=== PATIENT | female | born 1990 | race Caucasian/White ===

== ENCOUNTER 2024-12-29 05:55 | Emergency (ER) | payer MEDICAID, SELFPAY ==
[2024-12-29 05:56] VITALS: BMI 21.4
[2024-12-29 05:59] VITALS: BP 106/79; PULSE 89; RESP 19; TEMP 36.6; O2SAT 99
--- NOTE | 2024-12-29 06:28 | XR_ITS ---
Examination: Lumbar spine 3 views Technique one AP lateral coned lateral lower lumbar spine 3 views Exam date and time: December 29, 2024 0726 hrs. Indications: Lower back pain beginning 2 days ago. Findings: Adequate alignment lumbar vertebral bodies No lumbar fracture No spondylolisthesis Mild disc narrowing L5-S1 Impression: Mild disc narrowing L5-S1
--- NOTE | 2024-12-29 06:28 | XR_ITS ---
Examination: AP right hip single view Technique: AP right hip single view Exam date and time: December 29, 2024 0726 hrs. Indications: Right hip pain beginning 2 days ago. Findings: No hip fracture or hip dislocation No significant neck joint narrowing Impression: No hip fracture or hip dislocation No significant hip joint narrowing
[2024-12-29] MEDS: IBUPROFEN TAB 600 MG TABLET PO (06:41)
[2024-12-29] MEDS: CYCLObenzaPRINE 5 MG TABLET PO (06:41)
[2024-12-29 07:53] LABS: Collection Type, Urine Clean Catch
--- NOTE | 2024-12-29 08:09 | EDNOTE_ITS ---
<Statement entered by Miriam Franco MD - 01/01/25 15:23> As co-signing physician, I was present and available for consult prn. I concur with the plan and care as documented by the midlevel provider. Lower Extremity Injury RME/HPI General Chief Complaint: Extremity Injury, Lower Stated Complaint: RT HIP PAIN Time Seen by Provider: 12/29/24 06:16 Source: patient Arrival date/time: 12/29/24 05:55 This is a 34-year-old female who presents to the emergency department complaints of right gluteal hip pain that radiates down to her right foot. Reports her pain was exacerbated after she went up a flight of stairs. Patient did not attempt any interventions or take any OTC medications prior to ED visit. Patient denies any other associated symptoms or aggravating factors. No modifying factors, no radiation, no migration. Mode of arrival: ambulatory Limitations: no limitations Related Data Previous Rx's ?Medication ?Instructions ?Recorded prednisone 10 mg tablet 10 mg PO BID #6 tabs 9 sulfamethoxazole 800 1 tab PO BID #10 tabs mg-trimethoprim 160 mg tablet (Bactrim DS) methocarbamol 500 mg tablet 500 mg PO Q8H #20 tabs naproxen 500 mg tablet (Naprosyn) 500 mg PO BID PRN pa in #20 tabs 03/16/24 cyclobenzaprine 10 mg tablet 10 mg PO TID PRN muscle s pasm #14 06/21/24 tabs ibuprofen 600 mg tablet 600 mg PO Q8H PRN fever or p ain 06/21/24 #20 tabs cyclobenzaprine 5 mg tablet 5 mg PO Q8H #14 tabs 12/29 ibuprofen 600 mg tablet 600 mg PO Q8H PRN fever or p ain 12/29/24 #30 tabs Allergies Allergy/AdvReac Type Severity Reaction Status Date / Time clarithromycin Allergy Severe Swelling Verified 06/21/24 07:57 of Lip/Tongue/Throat Penicillins Allergy Severe DIFFICULTY Verified 06/21/24 07:57 BREATHING, HIVES Review of Systems Review of Systems Systems Reviewed: All systems reviewed, normal except as documented Narrative Review of Systems: Gen: No fever, no chills, no weight loss EYES: No discharge, no visual changes, no pain HEENT: No ear pain, no congestion, no sore throat PULM: No shortness of breath, no cough, no congestion CV: No chest pain, no dyspnea on exertion, no palpitations GI: No nausea, no vomiting, no diarrhea, no pain, no constipation : No frequency, no urgency, no dysuria Musc/skel: No joint pain, no back pain Skin: No rash Psyc: No hallucinations, no depression Heme/Lymph: No easy bleeding or bruising tendencies Neuro: No weakness, no headache ED Exam General Limitations: Present no limitations General appearance: Present alert and in no apparent distress Head Head exam: Present atraumatic Eye Eye exam: Present normal appearance, PERRL and EOMI ENT ENT exam: Present normal exam, normal oropharynx and mucous membranes moist Neck Neck exam: Present normal inspection, full ROM and trachea midline Chest Chest inspection: Present normal inspection and symmetric chest wall rise Respiratory Respiratory exam: Present normal lung sounds bilaterally Cardiovascular Cardiovascular exam: Present regular rate, normal rhythm and normal heart sounds Abdominal Exam Abdominal exam: Present soft and normal bowel sounds Extremities Exam Extremities exam: Present normal inspection and full ROM Back Exam Back exam: Present normal inspection, full ROM, sciatic notch tenderness (R) and straight leg raise (R); Absent CVA tenderness (R) or CVA tenderness (L) Neurological Exam Neurological exam: Present alert, oriented X3 and CN II-XII intact Psychiatric Psychiatric exam: Present normal affect and normal mood Skin Skin exam: Present warm, dry, intact and normal color Course Quality Measures none Orders Category Date Time Status XR hip RT 1V Stat Exams 12/29/24 06:28 Completed XR lumbar spine 2-3V Stat Exams 12/29/24 06:28 Completed HCG Qualitative,Urine Stat Lab 12/29/24 06:44 Completed Urinalysis Stat Lab 12/29/24 06:44 Completed CYCLObenzaPRINE [Flexeril] Med 12/29/24 06:30 Discontinued 5 mg PO X1 ONE Ibuprofen Tab [Motrin Tab] Med 12/29/24 06:30 Discontinued 600 mg PO X1 ONE Vital Signs Vital signs: Vital Signs Temperature 98 F 12/29/24 05:59 Pulse Rate 89 12/29/24 05:59 Respiratory Rate 19 12/29/24 05:59 Blood Pressure 106/79 12/29/24 05:59 Pulse Oximetry (%) 99 12/29/24 05:59 Oxygen Delivery Method Room Air 12/29/24 05:59 Extremity Injury, Lower MDM Narrative MDM Narrative:: No fever, weakness, abdominal pain, saddle anesthesia, bowel/bladder incontinence noted. No hx of IVDA. Gait and sensation intact. No signs of emergent pathology at this time. Low suspicion for emergent etiology such as epidural abscess or spinal cord compression/cauda equina. Exam is consistent with musculoskeletal back pain. Gave meds while in ED. Pain went from 10 to 5 after meds. Vitals improved as well. Likely chronic back pain versus sciatica. Patient data External records reviewed:: [facility] previous records Clinical information provided by:: patient Social determinants that could affect healthcare access:: none Patient has the following chronic illnesses:: None How is presenting disease/condition affected by chronic disease/condition?: no c hronic disease Evaluation data The following diagnostics were reviewed and interpreted by me:: radiology exam(s) Lab and/or radiology exams considered but not ordered:: MRI can be done outpatient Interpretation Summary: cc: Abraham Jefferson MD; Natalia uBtler PA-C; Daniel ([facility])Sandy LUMBER HACKER~ Examination: Lumbar spine 3 views Technique one AP lateral coned lateral lower lumbar spine 3 views Exam date and time: December 29, 2024 0726 hrs. Indications: Lower back pain beginning 2 days ago. Findings: Adequate alignment lumbar vertebral bodies No lumbar fracture No spondylolisthesis Mild disc narrowing L5-S1 Impression: Mild disc narrowing L5-S1 Examination: AP right hip single view Technique: AP right hip single view Exam date and time: December 29, 2024 0726 hrs. Indications: Right hip pain beginning 2 days ago. Findings: No hip fracture or hip dislocation No significant neck joint narrowing Impression: No hip fracture or hip dislocation No significant hip joint narrowing Medications / Prescriptions Medications or Prescriptions considered but not ordered:: no Medication administrations:: Medication Administration History Discontinued Medications Cyclobenzaprine HCl (Cyclobenzaprine 5 Mg Tablet) 5 mg PO X1 ONE Stop: 12/29/24 06:31 Last Admin: 12/29/24 06:41 Dose: 5 mg Documented By: ABHINAV Ibuprofen (Ibuprofen Tab 600 Mg Tablet) 600 mg PO X1 ONE Stop: 12/29/24 06:31 Last Admin: 12/29/24 06:41 Dose: 600 mg Documented By: CB All medications administered and effective Consultations Consultation(s) initiated? (list below): No Diagnosis Extremity Injury, Lower Differential Diagnosis: ankle sprain and strain, fracture of hip, puncture wound of foot and fracture of toe Most likely diagnosis given after review of the tests above:: Degenerative disc disease Admission Indicated Admission indicated?: not indicated Admission Request Was there a request for admission?: No Disposition Plan Disposition Plan: Discharge Discharge Attestation Discharge Attestation: The patient and all family members were given an opportunity to ask questions and understood the discharge instructions. Discharge instructions specifically effects, indications for sooner follow up or return to the emergency department, and the expected course of current diagnosis. Patient condition: Stable Discharge Plan Plan Patient Disposition: HOME (Self Care) Prescriptions/Referrals Prescriptions/Med Rec: New ibuprofen 600 mg tablet 600 mg PO Q8H PRN (Reason: fever or pain) Qty: 30 0RF cyclobenzaprine 5 mg tablet 5 mg PO Q8H Qty: 14 0RF No Action sulfamethoxazole-trimethoprim [Bactrim DS] 800-160 mg tablet 1 tab PO BID Qty: 10 0RF prednisone 10 mg tablet 10 mg PO BID Qty: 6 0RF methocarbamol 500 mg tablet 500 mg PO Q8H Qty: 20 0RF naproxen [Naprosyn] 500 mg tablet 500 mg PO BID PRN (Reason: pain) Qty: 20 0RF ibuprofen 600 mg tablet 600 mg PO Q8H PRN (Reason: fever or pain) Qty: 20 0RF cyclobenzaprine 10 mg tablet 10 mg PO TID PRN (Reason: muscle spasm) Qty: 14 0RF Referrals: Natalia Butler PA-C [Primary Care Provider] - In 1 week Problem List Clinical Impression: Degeneration of lumbar intervertebral disc Patient/Caregiver Discharge Instructions Discharge Activity: activity as tolerated Education Materials: ED Degenerative Disk Disease, ED Sciatica Additional Instructions: Advised patient of nonpharmacologic treatment with superficial heat, massage, acupuncture, or spinal manipulation If pharmacologic treatment is desired, good choice is nonsteroidal anti- inflammatory drugs (NSAIDs) or skeletal muscle relaxants. Advised patient that Physical therapy is often incorporated as a component of conservative therapy Advised to start medications of: NSAID, muscle relaxer. Follow-up with your primary doctor in 2 to 3 days. Return to the emergency department this any worsening symptoms change in condition. Print Language: Iranian Stand Alone Forms: [employer] Patient Portal Info Letter PA/LUMBER HACKER Supervising Physician PA/LUMBER HACKER Supervising Physician: Dr. Franco
[2024-12-29 08:35] LABS: HCG Qualitative,Urine Negative
[2024-12-29 08:48] VITALS: BP 90/65; PULSE 79; RESP 16; TEMP 36.6; O2SAT 99
[2024-12-29 08:49] LABS: Bacteria,Urine Rare; Bilirubin,Urine Negative (Negative); Blood,Urine Negative (Negative); Calcium Oxalate Crystals,Urine 4+; Color,Urine Yellow (Lt Yel-Yel); Glucose, Urine Negative (Negative); Ketones,Urine Trace (Negative); Leukocyte Esterase,Urine Positive (Negative); Nitrite,Urine Negative (Negative); Protein,Urine 1+ (Neg - Trace); RBC,Urine 42 /hpf (0-3); Specific Gravity,Urine 1.042 (1.001-1.035); Squamous Epithelial Cell,Urine 31 /hpf (0-5); WBC,Urine 117 /hpf (0-5)
[2024-12-29 08:54] LABS: Clarity,Urine Cloudy (Clear/Hazy)
== END 2024-12-29 09:00 | disposition home or self-care (01) ==
PROVIDERS: Nurse Practitioner Primary Care; Emergency Provider Emergency Medicine; PCP Physician Assistant
DX: M51.369 Other intervertebral disc degeneration, lumbar region without mention of lumbar back pain or lower extremity pain (principal); M48.07 Spinal stenosis, lumbosacral region
CPT/HCPCS: 72100; 73501; 81001; 81025; 99283; A9270

== ENCOUNTER 2025-08-07 08:39 | Emergency (ER) | payer MEDICAID, SELFPAY ==
[2025-08-07 08:41] VITALS: BMI 21.7
[2025-08-07 08:51] VITALS: BP 110/79; PULSE 105; RESP 18; TEMP 36.7; O2SAT 98
--- NOTE | 2025-08-07 09:21 | PD.EDNECK ---
ED Neck Injury Pain RME/HPI General Chief Complaint: Neck Pain/Injury Stated Complaint: NECK PAIN WITH NUMBNESS TO HAND AN FEET Time Seen by Provider: 08/07/25 09:21 Arrival date/time: 08/07/25 08:39 RME / HPI RME / HPI Narrative: See [facility] for Dr. Gutierrez's HPI documentation. Related Data Previous Rx's ?Medication ?Instructions ?Recorded prednisone 10 mg tablet 10 mg PO BID #6 tabs 01/07/19 sulfamethoxazole 800 1 tab PO BID #10 tabs 01/07/19 mg-trimethoprim 160 mg tablet (Bactrim DS) methocarbamol 500 mg tablet 500 mg PO Q8H #20 tabs 03/16/24 naproxen 500 mg tablet (Naprosyn) 500 mg PO BID PRN pain #20 tabs 03/16/24 cyclobenzaprine 10 mg tablet 10 mg PO TID PRN muscle spasm #14 06/21/24 tabs ibuprofen 600 mg tablet 600 mg PO Q8H PRN fever or pain 06/21/24 #20 tabs cyclobenzaprine 5 mg tablet 5 mg PO Q8H #14 tabs 12/29/24 ibuprofen 600 mg tablet 600 mg PO Q8H PRN fever or pain 12/29/24 #30 tabs Allergies Allergy/AdvReac Type Severity Reaction Status Date / Time clarithromycin Allergy Severe Swelling Verified 08/07/25 08:45 of Lip/Tongue/Throat Penicillins Allergy Severe DIFFICULTY Verified 08/07/25 08:45 BREATHING, HIVES Review of Systems Review of Systems Systems Reviewed: All systems reviewed, normal except as documented Past Medical History Past Medical History NEUROLOGIC: Positive Migraine Social History SMOKING STATUS: Current every day smoker ED Exam Narrative Physical exam: See [facility] for Dr. Gutierrez's physical exam documentation. Course Quality Measures none Orders Category Date Time Status CT cervical spine wo con Stat Exams 08/07/25 09:[address] head/brain wo con Stat Exams 08/07/25 09:[address] lumbar spine wo con Stat Exams 08/07/25 09:[address] thoracic spine wo con Stat Exams 08/07/25 09:23 Completed BMP [Basic Metabolic Panel] Stat Lab 08/07/25 10:04 Completed CBC Stat Lab 08/07/25 10:04 Completed CRP [C-Reactive Protein] Stat Lab 08/07/25 10:04 Completed Drug Screen,Urine Stat Lab 08/07/25 11:21 Completed ESR [Sed Rate (ESR)] Stat Lab 08/07/25 10:04 Completed HCG,Qualitative Serum Stat Lab 08/07/25 10:04 Completed Magnesium Stat Lab 08/07/25 10:04 Completed Procalcitonin Stat Lab 08/07/25 10:04 Completed TSH [Thyroid Stimulating Hormone] Stat Lab 08/07/25 10:04 Completed UA, C/S IF [Urinalysis, C/S if Indicated] Stat Lab 08/07/25 11:21 Completed Uric Acid Stat Lab 08/07/25 10:04 Completed Vital Signs Vital signs: Vital Signs Temperature 98.0 F 08/07/25 08:51 Pulse Rate 105 H 08/07/25 08:51 Respiratory Rate 18 08/07/25 08:51 Blood Pressure 110/79 08/07/25 08:51 Pulse Oximetry (%) 98 08/07/25 08:51 Oxygen Delivery Method Room Air 08/07/25 08:51 Pulse ox is 98% on room air which is adequate. Neck Pain MDM Narrative MDM Narrative:: This section includes all my notes and documentations, including HPI, PE, and ED course. Leon Gutierrez MD HPI: 35-year-old female here with a couple month history of neck pain and back pain with numbness and tingling in both extremities. No recent injury. No other complaints. ROS: All negative except as documented in HPI. Physical Exam: General:? Alert and oriented.? No acute distress.? Eyes:? Conjunctivae and lids clear.? EOMI.? PERRL. ENT:? No signs of head trauma. Neck:? Supple.? No tenderness. Heart:? RRR. Lungs:? No respiratory distress.? Good air movement.? No rhonchi, wheezing, rales.? Chest:? No tenderness. Abdomen:? Soft and nontender.? Normal bowel sounds.? No distension.? No rebound or guarding.? Back:? No tenderness.? Skin:? Warm and dry.? Neuro:? Alert and oriented X 3.? Cranial Nerves II-XII grossly intact.? No peripheral motor deficits. Musculoskeletal:? All major joints and bones are not tender with no limited ROM. I reviewed all diagnostic test results: My review of the CT head report is: No acute findings My review of the CT cervical spine report is: No acute fracture My review of the CT lumbar spine report is: No acute fracture My review of the CT thoracic spine report is: No thoracic fracture Blood tests and urine tests are unremarkable At this point, diagnoses include: Neck pain Back pain Patient remained stable. Recommended outpatient care. Based on my best medical judgment, made decision no further evaluation or treatment indicated at this time. Patient understands and agrees to the discharge instructions customized and printed, see below. Discharge Instructions from Dr. Gutierrez printed for you: 1. After extensive evaluation, there is no life-threatening condition or emergency. Such as stroke or brain tumor or broken neck or broken back or complete compression of your spinal cord. 2. Continue current care with your private doctors this week. Ask for further investigation not available here in the ER. Such as MRI imaging studies and nerve conduction studies and referrals to see specialists, such as neurologist. 3. Seek immediate medical care with worsening or with any concerns. Leon Gutierrez MD Patient data External records reviewed:: [facility] previous records Clinical information provided by:: patient Social determinants that could affect healthcare access:: none Patient has the following chronic illnesses:: None reported How is presenting disease/condition affected by chronic disease/condition?: uneffected by Evaluation data The following diagnostics were reviewed and interpreted by me:: lab results and radiology exam(s) Lab and/or radiology exams considered but not ordered:: None Interpretation Summary: I reviewed all diagnostic test results: My review of the CT head report is: No acute findings My review of the CT cervical spine report is: No acute fracture My review of the CT lumbar spine report is: No acute fracture My review of the CT thoracic spine report is: No thoracic fracture Blood tests and urine tests are unremarkable Medications / Prescriptions Medications or Prescriptions considered but not ordered:: None Medication administrations:: No medications given during ED course. Consultations Consultation(s) initiated? (list below): No Diagnosis Neck Differential Diagnosis: disc disorder of cervical region, whiplash injury to neck, closed subluxation of cervical spine, fracture of cervical spine without lesion of spinal cord, cervical radiculopathy, torticollis, cervical spondylosis and strain of neck muscle Most likely diagnosis given after review of the tests above:: Musculoskeletal neck/back pain Admission Indicated Admission indicated?: not indicated Explain why admission is indicated or not indicated:: With no condition needing emergent intervention, there was no indication for admission. Admission Request Was there a request for admission?: No Disposition Plan Disposition Plan: Discharge Discharge Attestation Discharge Attestation: The patient and all family members were given an opportunity to ask questions and understood the discharge instructions. Discharge instructions specifically effects, indications for sooner follow up or return to the emergency department, and the expected course of current diagnosis. Patient condition: Stable Discharge Plan Plan Patient Disposition: HOME (Self Care) Prescriptions/Referrals Prescriptions/Med Rec: No Action sulfamethoxazole-trimethoprim [Bactrim DS] 800-160 mg tablet 1 tab PO BID Qty: 10 0RF prednisone 10 mg tablet 10 mg PO BID Qty: 6 0RF methocarbamol 500 mg tablet 500 mg PO Q8H Qty: 20 0RF naproxen [Naprosyn] 500 mg tablet 500 mg PO BID PRN (Reason: pain) Qty: 20 0RF ibuprofen 600 mg tablet 600 mg PO Q8H PRN (Reason: fever or pain) Qty: 30 0RF cyclobenzaprine 5 mg tablet 5 mg PO Q8H Qty: 14 0RF ibuprofen 600 mg tablet 600 mg PO Q8H PRN (Reason: fever or pain) Qty: 20 0RF cyclobenzaprine 10 mg tablet 10 mg PO TID PRN (Reason: muscle spasm) Qty: 14 0RF Referrals: Natalia Butler PA-C [Primary Care Provider, Family Practice] - In 1 week Problem List Clinical Impression: Neck pain, Back pain Patient/Caregiver Discharge Instructions Discharge Activity: activity as tolerated Education Materials: ED Back and Neck Pain, General Additional Instructions: Discharge Instructions from Dr. Gutierrez printed for you: 1. After extensive evaluation, there is no life-threatening condition or emergency. Such as stroke or brain tumor or broken neck or broken back or complete compression of your spinal cord. 2. Continue current care with your private doctors this week. Ask for further investigation not available here in the ER. Such as MRI imaging studies and nerve conduction studies and referrals to see specialists, such as neurologist. 3. Seek immediate medical care with worsening or with any concerns. Print Language: Cuban Stand Alone Forms: [employer] Patient Portal Info Letter
--- NOTE | 2025-08-07 09:23 | XR_ITS ---
Examination: CT brain head without contrast. 2-D sagittal coronal reconstructions Date and time of exam: August 07, 2025, 0933 hours, comparison March 16, 2024 INDICATIONS: Generalized head pain today CTDI: vol (mGy): 48.6 DLP: (mGycm): 912 Technique: Multiple CT axial sections of the brain have been obtained, 5 mm slice thickness. Contrast has not been administered. 2-D sagittal, coronal reconstructions have been obtained Low dose protocols were performed. One or more of the following dose reduction techniques were used; automated exposure control, adjustment of the mA and/or KV according to patient size, use of iterative reconstruction technique. Findings: No significant ventricular enlargement. Intra-axial or extra-axial hemorrhage density is not seen. No mass effect or midline shift Basal cisterns are not remarkable. Fourth ventricle is midline. Cranial vault intact. Impression: Negative for acute hemorrhage, mass effect or midline shift Advise clinical correlation and follow-up accordingly
--- NOTE | 2025-08-07 09:23 | XR_ITS ---
Examination: CT cervical spine without contrast 2-D sagittal reconstructions 2-D coronal reconstructions 3-D reconstructions. Exam date and time: August 07, 2025, 0933 hours INDICATIONS: Onset neck pain today CTDI:vol (mGy) 12.9 DLP: (mGycm) 289 Technique: Multiple 2 mm axial sections of the cervical spine have been obtained. The coronal and sagittal reconstructions have been obtained. 3-D reconstructions have been obtained. Low dose protocols were performed. One or more of the following dose reduction techniques were used; automated exposure control, adjustment of the mA and/or KV according to patient size, use of iterative reconstruction technique. Findings: Axial sections demonstrate intact base of the skull. C1 exhibit satisfactory relationship to the odontoid. No acute cervical vertebral body fracture seen. Alignment posterior spinous processes satisfactory. Impression: No acute cervical fracture. As clinically warranted, MRI cervical spine without contrast follow-up would be preferable in assessing for acquired soft tissue spinal stenosis
--- NOTE | 2025-08-07 09:23 | XR_ITS ---
Examination: CT lumbar spine, without contrast. 2-D sagittal reconstructions. 2-D coronal reconstructions. 3-D reconstructions. Date and time of exam: July 7202 5, 1109 hours INDICATIONS: Lower back pain onset today CTDI: vol (mGy): 12.6 DLP: (mGycm): 361 Technique: Multiple 1.25 mm axial sections of the lumbar spine without intravenous contrast have been obtained. 2-D sagittal and coronal reconstructions have been obtained. 3-D reconstructions have been obtained. Low dose protocols were performed. One or more of the following dose reduction techniques were used; automated exposure control, adjustment of the mA and/or KV according to patient size, use of iterative reconstruction technique. Findings: Adequate alignment lumbar vertebral bodies on the lateral view No lumbar fracture No spondylolisthesis Lumbar pedicles, laminae transverse and posterior spinous processes intact Axial images demonstrate no focal lumbar disc protrusion IMPRESSION: No lumbar fracture No lumbar disc narrowing No focal lumbar disc protrusions
--- NOTE | 2025-08-07 09:23 | XR_ITS ---
Examination: CT thoracic spine, without contrast. 2-D sagittal reconstructions. 2-D coronal reconstructions. 3-D reconstructions. Date and time of exam: August 07, 2025, 1109 hours INDICATIONS: Onset mid back pain today CTDI: vol (mGy): 20.4 DLP: (mGycm): 616 Technique: Multiple 1.25 mm axial sections of the thoracic spine without intravenous contrast have been obtained. 2-D sagittal and coronal reconstructions have been obtained. 3-D reconstructions have been obtained. Low dose protocols were performed. One or more of the following dose reduction techniques were used; automated exposure control, adjustment of the mA and/or KV according to patient size, use of iterative reconstruction technique. Findings: Adequate alignment thoracic vertebral bodies on lateral view No thoracic fracture No significant thoracic disc narrowing Thoracic pedicles, laminae, transverse and posterior spinous processes intact No focal thoracic disc protrusion IMPRESSION: No thoracic fracture No focal thoracic disc protrusion If pain persists, consider MRI thoracic spine without contrast follow-up
[2025-08-07 10:21] LABS: Basophils # (Auto) 0.1 Thou/mm3 (0.0-0.2); Basophils % (Auto) 1 % (0-2.5); Eosinophils # (Auto) 0.3 Thou/mm3 (0.0-0.5); Eosinophils % (Auto) 4 % (0-10); Hematocrit 36.8 % (36.0-46.0); Hemoglobin 12.4 g/dL (12.0-16.0); Immature Granulocytes Auto 0.01 Thou/mm3 (0.00-0.00); Lymphocytes # (Auto) 2.8 Thou/mm3 (1.0-4.8); Lymphocytes % (Auto) 34 % (10-50); Mean Corpuscular HGB Conc 33.7 g/dl (31.0-37.0); Mean Corpuscular Hemoglobin 32.6 pg (25.0-35.0); Mean Corpuscular Volume 97 fL (80-100); Monocytes # (Auto) 0.7 Thou/mm3 (0.0-0.8); Monocytes % (Auto) 8 % (0-12); Neutrophils # (Auto) 4.4 Thou/mm3 (1.8-7.7); Neutrophils % (Auto) 53 % (37-80); Nucleated Red Blood Cell # 0.00 Thou/mm3 (0.00-0.00); Nucleated Red Blood Cell % 0 /100 WBC (0); Platelet Count 177 Thou/mm3 (140-440); RDW Standard Deviation 46.0 fL (36.4-46.3); Red Blood Count 3.80 Miln/mm3 (4.00-5.20); White Blood Count 8.2 Thou/mm3 (3.6-11.0)
[2025-08-07 10:34] LABS: HCG,Qualitative Serum Negative
[2025-08-07 10:46] LABS: Anion Gap 6 (7-16); BUN/Creatinine Ratio 11 Ratio (12-20); Blood Urea Nitrogen 8 mg/dL (9-23); C-Reactive Protein < 0.5 mg/dL (0.0-0.9); Calcium 9.4 mg/dL (8.3-10.6); Carbon Dioxide 27.6 mMol/L (20.0-31.0); Chloride 108 mMol/L (98-107); Creatinine (Component) 0.7 mg/dL (0.6-1.3); Estimated Creatinine Clearance 82.1 mL/min (>60); Glucose 86 mg/dL (74-106); Magnesium 1.9 mg/dL (1.6-2.6); Osmolality,Calculated 280 (275-295); Potassium 3.8 mMol/L (3.4-5.1); Procalcitonin 0.06 ng/ml (0.0-0.49); Sodium 142 mMol/L (136-145); Thyroid Stimulating Hormone 3.09 uIU/mL (0.55-4.78); Uric Acid 4.6 mg/dL (3.1-7.8); eGFR > 60 See Note
[2025-08-07 11:03] LABS: Sed Rate (ESR) 18 mm/hr (0-20)
[2025-08-07 11:28] LABS: Collection Type, Urine Clean Catch; RBC,Urine 0 /hpf (0-3)
[2025-08-07 11:40] LABS: Amphetamine/Methamp Scrn,U Negative (Negative); Barbiturate Screen,Urine Negative (Negative); Benzodiazepines Screen,Urine Negative (Negative); Benzoylecgonine Screen, Ur Negative (Negative); Fentanyl Screen,Urine Negative (Negative); Opiate Screen,Urine Negative (Negative); THC Screen,Urine Negative (Negative)
[2025-08-07 11:42] LABS: Bilirubin,Urine Negative (Negative); Blood,Urine Negative (Negative); Clarity,Urine Clear (Clear/Hazy); Color,Urine Lt-Yellow (Lt Yel-Yel); Culture Indicated,Urine Not Indicated; Glucose, Urine Negative (Negative); Ketones,Urine Negative (Negative); Leukocyte Esterase,Urine Negative (Negative); Nitrite,Urine Negative (Negative); PH,Urine 7.0 (5.0-7.0); Protein,Urine Negative (Neg - Trace); Specific Gravity,Urine 1.012 (1.001-1.035); Squamous Epithelial Cell,Urine 8 /hpf (0-5); Urobilinogen,Urine Negative mg/dL (0.0-1.0); WBC,Urine < 1 /hpf (0-5)
== END 2025-08-07 13:33 | disposition home or self-care (01) ==
PROVIDERS: Emergency Provider Emergency Medicine; PCP Physician Assistant
DX: M54.9 Dorsalgia, unspecified (principal); M54.2 Cervicalgia
CPT/HCPCS: 36415; 70450; 72125; 72128; 72131; 80048; 80307; 81001; 83735; 84145; 84443; 84550; 84703; 85025; 85652; 86140; 99283